=== PATIENT | male | born 2000 | race Caucasian/White ===

== ENCOUNTER 2019-04-09 14:31 | Emergency (ER) | payer OTHER ==
[~2019-04-09] VITALS: Ht 188 cm; Wt 72.7 kg
[2019-04-09 14:31] VITALS: TEMP 97
[~2019-04-09 14:31] MED LIST: LEVEMIR FLEX100 U/ML SQ; NOVOLOG FLEX100 U/ML SQ
[2019-04-09 15:31] LABS: ACETAMINOPHEN < 10 ug/mL (10-30); ALANINE AMINOTRANSFERASE 17 U/L (21-72); ALBUMIN 3.6 gm/dL (3.5-5.0); ALKALINE PHOSPHATASE 54 U/L (50-136); ANION GAP 17 mmol/L (7-16); AST,SGOT 25 U/L (15-37); BILIRUBIN,TOTAL 0.6 mg/dL (0.0-1.0); BLOOD UREA NITROGEN 16 mg/dL (9-20); CALCIUM 9.1 mg/dL (8.4-10.2); CARBON DIOXIDE 17 mmol/L (22-30); CHLORIDE 101 mmol/L (98-107); CREATININE, serum 1.38 (0.66-1.25); POTASSIUM 4.6 mmol/L (3.4-5.0); SALICYLATE < 1.0 mg/dL; SODIUM 135 mmol/L (137-145); TOTAL PROTEIN 5.9 gm/dL (6.4-8.2)
[2019-04-09 15:32] LABS: BASO # 0.1 (0.0-0.2); BASO % 0.5 % (0.0-2.0); EOS # 0.1 (0.0-0.7); EOS % 0.3 % (0-4.0); GLUCOSE 492 mg/dL (74-106); GRAN # 11.4 (1.4-6.5); GRAN % 75.7 % (42.2-75.2); HEMATOCRIT 35.7 % (36.0-47.0); HEMOGLOBIN 11.6 g/dl (12.5-16.1); LYMPH # 2.8 (1.2-3.4); LYMPH % 18.7 % (20.0-51.0); MEAN CELL VOLUME 91 fl (80.0-95.0); MEAN CORPUSCULAR HEMOGLOBIN 30 pg (26.0-32.0); MEAN CORPUSCULAR HGB CONC 33 g/dl (33.0-37.0); MEAN PLATELET VOLUME 10.6 fl (7.4-10.4); MONO # 0.6 (0.1-0.6); MONO % 3.8 % (1.7-9.3); PLATELET COUNT 493 K/mm3 (130-400); RED BLOOD COUNT 3.92 M/mm3 (4.20-5.60); REDCELL DISTRIBUTION WIDTH-CV 12.4 % (11.5-14.5)
[2019-04-09 15:39] VITALS: BP 127/88; PULSE 127
--- NOTE | 2019-04-09 15:58 | NUR ---
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 The patient's brother, Alan was in the ED family room with a friend. The patient is being transferred via [facility] to [facility] in [place]. Alan contacted the patient's mother, father, and brother. They are in the [facility] and are enroute to [place]. There are no additional needs at this time.
[2019-04-09 16:11] LABS: ARTERIAL BLD GAS O2 SATURATION 99.3 % (92-100); ARTERIAL BLD GAS TCO2 CT 15.4; ARTERIAL BLOOD GAS HCO3 14.3 meq/L (22-26); ARTERIAL BLOOD GAS PCO2 34.2 mmHg (35-45); ARTERIAL BLOOD GAS pH 7.24 (7.35-7.45)
[2019-04-09 16:13] LABS: ARTERIAL BLOOD GAS PO2 237.8 mmHg (80-100)
[2019-04-09 17:45] LABS: HIV 1/2 Antibodies Non-Reactive; HIV-1p24 Antigen Non-Reactive
[2019-04-10 16:12] LABS: HEPATITIS B SURFACE ANTIGEN Negative (Negative); HEPATITIS C VIRUS ANTIBODY Negative (Negative)
== END 2019-04-09 16:00 | disposition short-term general hospital (02) ==
LOC: COL.ER 14:31 → EDBD 14:32 → COL.ER 16:00
PROVIDERS: Emergency Medicine; Nurse Practitioner
DX: S11.91XA Laceration without foreign body of unspecified part of neck, initial encounter (principal); I95.9 Hypotension, unspecified; E10.65 Type 1 diabetes mellitus with hyperglycemia; X78.9XXA Intentional self-harm by unspecified sharp object, initial encounter
CPT/HCPCS: J0690; J1815; J2250; J2704; J3010; J7060; P9016